=== PATIENT | male | born 1955 | race Caucasian/White ===

== ENCOUNTER → 2018-11-12 | Outpatient (CLI) | payer BC ==
--- NOTE | 2018-11-12 17:33 | Diagnostic Imaging Report ---
INDICATION: Mass on inside upper part of the arm x2 weeks. History of lymphoma. TECHNIQUE: 2 views of the right humerus. CORRELATION STUDY: None. FINDINGS: The humerus has an unremarkable appearance. The visualized portions of the shoulder and elbow are unremarkable. Soft tissues are unremarkable. IMPRESSION: 1. Negative for acute bony abnormality of the humerus. Soft tissues limited in assessment. If further assessment is desired, ultrasound and/or CT imaging would be recommended; particularly given history of lymphoma. Dictated by: Dictated on workstation # [id number]
== END ==
LOC: RAD FS 17:08
PROVIDERS: ATTEND Nurse Practitioner Family
DX: R22.31 Localized swelling, mass and lump, right upper limb (principal); Z85.72 Personal history of non-Hodgkin lymphomas
CPT/HCPCS: 73060

== ENCOUNTER 2019-03-12 16:29 | Emergency (ER) | payer BC ==
[~2019-03-12] VITALS: Ht 174 cm; Wt 80.9 kg
--- NOTE | 2019-03-12 17:04 | ED General ---
General Stated Complaint: FISH HOOK IN LIP History of Present Illness Date Seen by Provider: Mar 12, 2019 Time Seen by Provider: 17:02 Initial Comments 63-year-old male was fishing comes with a small treble hook one of which has perforated into his central upper lip and he can't remove Allergies and Home Medications Allergies Coded Allergies: No Known Drug Allergies (Unverified , 04/23/10) Patient Home Medication List Home Medication List Reviewed: Yes Review of Systems Review of Systems Constitutional: no symptoms reported EENTM: see HPI Respiratory: no symptoms reported Cardiovascular: no symptoms reported Gastrointestinal: no symptoms reported Genitourinary: no symptoms reported Musculoskeletal: no symptoms reported Past Nwtuqws-Bbpofp-Kmpuyh Hx Past Medical History Reproductive Disorders: No Physical Exam Vital Signs Vital Signs - First Documented 03/12/19 16:49 Temp 36.0 Pulse 94 Resp 18 B/P (MAP) 137/71 (93) Pulse Ox 97 O2 Delivery Room Air Capillary Refill : Height, Weight, BMI Height: '" Weight: lbs. oz. kg; BMI Method: General Appearance: No Apparent Distress, WD/WN Eyes: Left Eye PERRL, Left Eye EOMI Neck: Supple Respiratory: Lungs Clear Cardiovascular: Regular Rate, Rhythm (as in HPI) Procedures/Interventions Upper lip was anesthetized with 1% lidocaine the brandon was pushed through with difficulty was a tiny little treble hook none of the instruments in the department (wire cutters) were adequate to cut the branodn off this hook therefore it was necessary to take a scalpel and incised into the lip to free this him from his lip Wound was irrigated out with 100 cc of normal saline and re-approximated with 2 x 5.0 prolene sutures Progress/Results/Core Measures Suspected Sepsis SIRS Temperature: Pulse: Respiratory Rate: Blood Pressure / Mean: Results/Orders My Orders Orders - MIR DÍAZ MD Lidocaine 1% Inj 20 Ml (Xylocaine 1% Inj (03/12/19 17:15) Tetanus/Diphtheria Inj (Adult) (Tenivac (03/12/19 17:15) Medications Given in ED Current Medications Medications Dose Ordered Sig/Erika Route Start Time Stop Time Status Last Admin Dose Admin Lidocaine HCl 20 ml ONCE ONCE INJ 03/12/19 17:15 03/12/19 17:16 DC 03/12/19 17:18 20 ML Tetanus/ Diphtheria Toxoids 0.5 ml ONCE ONCE IM 03/12/19 17:15 03/12/19 17:16 DC 03/12/19 17:23 0.5 ML Vital Signs/I&O 03/12/19 16:49 Temp 36.0 Pulse 94 Resp 18 B/P (MAP) 137/71 (93) Pulse Ox 97 O2 Delivery Room Air Capillary Refill : Departure Impression Primary Impression: Foreign body in skin Additional Impression: Lip laceration Qualified Codes: S01.511A - Laceration without foreign body of lip, initial encounter Disposition: 01 HOME, SELF-CARE Condition: Stable Departure-Patient Inst. Referrals: NO,LOCAL PHYSICIAN (PCP/Family) Primary Care Physician Patient Instructions: Laceration Repair With Stitches (DC) Add. Discharge Instructions: Stitches should be removed in 5-7 days Scripts Sulfamethoxazole/Trimethoprim (Bactrim Ds Tablet) 1 Each Tablet 1 EACH PO BID, #10 TAB Prov: MIR DÍAZ MD 03/12/19 MIR DÍAZ MD Mar 12, 2019 17:04 POS
[2019-03-12] MEDS ORDERED: TETANUS & DIPHTHERIA TOX,ADULT 0.5 ML (TENIVAC) IM ONE (17:15)
[2019-03-12] MEDS ORDERED: LIDOCAINE 1% INJ 20 ML 20 ML VIAL INJ ONE (17:15)
[2019-03-12] MEDS ORDERED: SULF1TAB35 PO (17:57)
[2019-03-12] MEDS ORDERED: RX-TRIMETH/SULFA. 160-800 MG (BACTRIM DS) TAB PPK#2 PO ONE (18:04)
[2019-03-12 18:07] VITALS: BP 124/72
[2019-03-12] MEDS ORDERED: NEO/POLY/BAC (NEOSPORIN) OINT 15 GM TUBE TOP SCH (21:00)
== END 2019-03-12 18:02 | disposition home or self-care (01) ==
LOC: EDUNIT# 16:29 → ER FS 16:31
DX: S01.521A Laceration with foreign body of lip, initial encounter (principal); Z23 Encounter for immunization; W45.8XXA Other foreign body or object entering through skin, initial encounter
CPT/HCPCS: 90714; 99284

== ENCOUNTER 2019-03-18 11:23 | Emergency (ER) | payer BC ==
[~2019-03-18] VITALS: Ht 175.3 cm; Wt 77.3 kg
[~2019-03-18 11:23] MED LIST: SULF1TAB35 PO
[2019-03-18 11:45] VITALS: BP 131/67
== END 2019-03-18 12:00 | disposition home or self-care (01) ==
LOC: EDUNIT# 11:23 → ER FS 11:24
DX: S01.501D Unspecified open wound of lip, subsequent encounter (principal); X58.XXXD Exposure to other specified factors, subsequent encounter